=== PATIENT | female | born 1960 | race African-American/Black ===

== ENCOUNTER 2016-08-20 17:34 | Emergency (ER) | payer MEDICARE | END 2016-08-20 19:04 | disposition home or self-care (01) | LOC: ER1 17:34 | DX: S39.012A Strain of muscle, fascia and tendon of lower back, initial encounter (principal); X58.XXXA Exposure to other specified factors, initial encounter; J44.9 Chronic obstructive pulmonary disease, unspecified; F17.210 Nicotine dependence, cigarettes, uncomplicated; Z88.0 Allergy status to penicillin; Z79.899 Other long term (current) drug therapy | CPT/HCPCS: 96372; 99283; J1100; J1885 ==